=== PATIENT | female | born 1960 | race Hispanic/Latino ===

== ENCOUNTER 2021-11-15 18:43 | Inpatient (IN) | payer OTHER ==
[~2021-11-15] VITALS: Ht 144.8 cm; Wt 62.7 kg
[2021-11-15 19:38] LABS: BASOPHILS % (AUTO) 1.9 % (0.0-5.0); EOSINOPHILS % (AUTO) 10.4 % (0.0-8.0); HEMATOCRIT 33.2 % (36-48); LYMPHOCYTES % (AUTO) 19.5 % (21.0-51.0); MEAN CORPUSCULAR HGB CONC 32.8 g/dL (32.0-36.0); MEAN CORPUSCULAR VOLUME 91.5 fL (79-99); MONOCYTES % (AUTO) 9.8 % (3.0-13.0); PLATELET COUNT (AUTO) 177 K/uL (130-400); RED BLOOD CELL COUNT(AUTO) 3.63 MIL/uL (4.00-5.50); RED CELL DISTRIBUTION WIDTH 14.2 % (11.0-15.5); WHITE BLOOD COUNT (AUTO) 4.8 K/uL (4.8-10.8)
[2021-11-15 19:49] LABS: CREATININE 5.1 mg/dL (0.5-1.5); POTASSIUM 3.6 mmol/L (3.5-5.1)
[2021-11-15 19:51] LABS: INR 1.23 (0.85-1.15); PROTHROMBIN TIME 13.2 SEC (9.6-11.6)
[2021-11-15 19:54] LABS: ALBUMIN 3.2 g/dL (3.5-5.0); BILIRUBIN,TOTAL 0.9 mg/dL (0.2-1.0); TOTAL PROTEIN, SERUM 8.3 g/dL (6.0-8.3)
[2021-11-16] VITALS (11 sets, daily range): BP systolic 113–174; BP diastolic 63–101
[2021-11-16] MEDS: ACETAMINOPHEN 500 MG TABLET PO ONE ×2 (00:22→00:43)
[2021-11-16] MEDS ORDERED: IPRATROPIUM/ALBUTEROL SULFATE 3 ML SOLUTION IH PRN (00:30)
[2021-11-16] MEDS ORDERED: DiphenhydrAMINE HCL 50 MG/ML VIAL IV PRN (00:30)
[2021-11-16] MEDS ORDERED: MORPHINE 2 MG SYG IVP ONE (01:00)
[2021-11-16] MEDS ORDERED: DEXTROSE 50%-WATER 50 ML DISP.SYRIN IV PRN (01:30)
[2021-11-16] MEDS ORDERED: GLUCAGON 1MG KIT 1 MG ML IM PRN (01:30)
[2021-11-16 05:31] LABS: BASOPHILS % (AUTO) 2.1 % (0.0-5.0); EOSINOPHILS % (AUTO) 9.6 % (0.0-8.0); HEMATOCRIT 31.3 % (36-48); LYMPHOCYTES % (AUTO) 24.2 % (21.0-51.0); MEAN CORPUSCULAR HEMOGLOBIN 31.1 pg (27.0-33.0); MEAN CORPUSCULAR HGB CONC 33.5 g/dL (32.0-36.0); MEAN CORPUSCULAR VOLUME 92.6 fL (79-99); NEUTROPHILS % (AUTO) 53.9 % (40.0-77.0); PLATELET COUNT (AUTO) 169 K/uL (130-400); RED BLOOD CELL COUNT(AUTO) 3.38 MIL/uL (4.00-5.50); RED CELL DISTRIBUTION WIDTH 14.4 % (11.0-15.5); WHITE BLOOD COUNT (AUTO) 4.3 K/uL (4.8-10.8)
[2021-11-16 05:44] LABS: CREATININE 5.4 mg/dL (0.5-1.5); POTASSIUM 3.3 mmol/L (3.5-5.1)
[2021-11-16 05:48] LABS: ALBUMIN 3.1 g/dL (3.5-5.0); BILIRUBIN,TOTAL 0.9 mg/dL (0.2-1.0); MAGNESIUM 2.2 mg/dL (1.80-2.40); PHOSPHORUS 4.2 mg/dL (2.5-4.9); TOTAL PROTEIN, SERUM 7.9 g/dL (6.0-8.3)
[2021-11-16] MEDS: INSULIN HUMULIN R 100 UNIT/ML 3ML SQ SCH ×4 (06:38→21:00)
[2021-11-16] MEDS: TRAMADOL HCL 50 MG TABLET PO PRN ×2 (12:54→19:24)
[2021-11-16 14:35] LABS: SPECIMENTYPE,BODY FLUID ASCITES
[2021-11-16 14:36] LABS: APPEARANCE BODY FLUID CLEAR (CLEAR); BODY FLUID RBC 744 /cu. mm.; BODY FLUID WBC 95 /cu. mm.; COLOR,BODY FLUID YELLOW (LT YELLOW); TOTAL VOLUME,BODY FLUID 2000 mL
[2021-11-16 14:39] LABS: BF LYMPHOCYTE 46 %; BF MESOTHELIAL 50 %; BF MONOCYTE 1 %
[2021-11-16] MEDS ORDERED: LIDOCAINE HCL 400MG/20ML VIAL ONE (14:46)
[2021-11-16] MEDS: Vitamin B Complex/Vit C/Folic Acid PO SCH (14:52)
[2021-11-16] MEDS: ONDANSETRON 4MG INJ IV PRN (23:41)
[2021-11-17] VITALS (21 sets, daily range): BP systolic 92–154; BP diastolic 51–84
[2021-11-17] MEDS: TRAMADOL HCL 50 MG TABLET PO PRN (02:41)
[2021-11-17 04:00] LABS: HEMATOCRIT 27.7 % (36-48); MEAN CORPUSCULAR HEMOGLOBIN 29.9 pg (27.0-33.0); MEAN CORPUSCULAR HGB CONC 32.5 g/dL (32.0-36.0); PLATELET COUNT (AUTO) 163 K/uL (130-400); RED BLOOD CELL COUNT(AUTO) 3.01 MIL/uL (4.00-5.50); WHITE BLOOD COUNT (AUTO) 6.1 K/uL (4.8-10.8)
[2021-11-17 04:09] LABS: MAGNESIUM 2.2 mg/dL (1.80-2.40); PHOSPHORUS 5.1 mg/dL (2.5-4.9); THYROID STIMULATING HORMONE 5.2 uIU/mL (0.36-3.74)
[2021-11-17 05:53] LABS: BAND NEUTROPHILS % (MANUAL) 2 % (0-2); BASOPHILS % (MANUAL) 2 % (0-2); EOSINOPHILS % (MANUAL) 3 % (1-6); LYMPHOCYTES % (MANUAL) 17 % (22-44); MAN.DIFF COMMENT-IMPRESSION MANUAL DIFFERENTIAL; MONOCYTES % (MANUAL) 6 % (2-9); PLATELET MORPHOLOGY COMMENT ADEQUATE; REACTIVE LYMPHOCYTES 2 % (0-0); SEGMENTED NEUTROPHILS % 68 % (40-70)
[2021-11-17] MEDS: INSULIN HUMULIN R 100 UNIT/ML 3ML SQ SCH ×4 (06:04→20:02)
[2021-11-17] MEDS ORDERED: MORPHINE 2 MG SYG IVP PRN (08:30)
[2021-11-17] MEDS: Vitamin B Complex/Vit C/Folic Acid PO SCH (09:31)
[2021-11-17] MEDS: ONDANSETRON 4MG INJ IV PRN ×2 (09:35→19:39)
[2021-11-17] MEDS ORDERED: HYDROMORPHONE 1 MG INJ IVP PRN (12:00)
[2021-11-17] MEDS ORDERED: ACET-2743 PO (12:33)
[2021-11-17] MEDS ORDERED: SIME125C81 PO (12:33)
[2021-11-17] MEDS: SIMETHICONE 80 MG TAB.CHEW PO SCH ×2 (13:13→20:02)
[2021-11-17] MEDS ORDERED: EPOETIN ALFA-EPBX (ESRD) 10,000 UNIT/ML VIAL SQ SCH (21:00)
[2021-11-18 02:18] LABS: HEPATITIS B SURFACE ANTIGEN Non-Reactive (Negative)
[2021-11-18 04:04] VITALS: BP 111/51
[2021-11-18] MEDS ORDERED: ACETAMINOPHEN 500 MG TABLET PO PRN (06:30)
[2021-11-18] MEDS: INSULIN HUMULIN R 100 UNIT/ML 3ML SQ SCH (06:40)
[2021-11-18 06:43] LABS: HEMATOCRIT 24.8 % (36-48); MEAN CORPUSCULAR HEMOGLOBIN 30.8 pg (27.0-33.0); MEAN CORPUSCULAR HGB CONC 33.1 g/dL (32.0-36.0); MEAN CORPUSCULAR VOLUME 93.2 fL (79-99); RED BLOOD CELL COUNT(AUTO) 2.66 MIL/uL (4.00-5.50); RED CELL DISTRIBUTION WIDTH 14.3 % (11.0-15.5)
[2021-11-18 07:30] VITALS: BP 106/55
== END 2021-11-18 09:00 | disposition home or self-care (01) | DRG 640 ==
LOC: EDH 18:43 → EDHIP 18:44 → UNDOADMIN 11-16 00:05 → 2AH 11-16 03:59
PROVIDERS: ADMIT Hospitalist; ATTEND Hospitalist
PROC: 0W9G3ZZ Drainage of Peritoneal Cavity, Percutaneous Approach (ICD-10-PCS; principal; 2021-11-16)
PROC: 5A1D70Z Performance of Urinary Filtration, Intermittent, Less than 6 Hours Per Day (ICD-10-PCS; 2021-11-17)
DX: E87.70 Fluid overload, unspecified (principal); N18.6 End stage renal disease; I13.2 Hypertensive heart and chronic kidney disease with heart failure and with stage 5 chronic kidney disease, or end stage renal disease; J90 Pleural effusion, not elsewhere classified; R18.8 Other ascites; E11.22 Type 2 diabetes mellitus with diabetic chronic kidney disease; I50.9 Heart failure, unspecified; Z79.4 Long term (current) use of insulin; Z99.2 Dependence on renal dialysis
CPT/HCPCS: 36415; 49083; 71045; 71250; 74176; 76705; 80053; 82140; 82330; 82948; 83735; 83880; 84100; 84443; 84484; 85025; 85027; 85610; 86704; 86706; 87071; 87205; 87340; 89051; 90935; 93005; 94640; C1729; G0378; J2405; J3490

== ENCOUNTER → 2022-06-15 | Outpatient (CLI) | payer BC ==
[~2022-06-15] MED LIST: ACET-2743 PO; ALBUMIN (HUMAN) 25% 200 ML IV SCH; SIME125C81 PO
[2022-06-15 10:42] LABS: INR 1.11 (0.85-1.15)
[2022-06-15 10:43] LABS: PARTIAL THROMBOPLASTIN TIME 28.6 SEC (26.3-35.5)
== END | disposition home or self-care (01) ==
LOC: RAH 09:37
PROVIDERS: ATTEND Internal Medicine
DX: Z01.818 Encounter for other preprocedural examination (principal); K74.60 Unspecified cirrhosis of liver; Z88.1 Allergy status to other antibiotic agents; Z88.8 Allergy status to other drugs, medicaments and biological substances
CPT/HCPCS: 36415; 76705; 85610; 85730; P9046